=== PATIENT | female | born 1965 | race Caucasian/White ===

== ENCOUNTER 2019-03-22 11:10 | Day surgery (SDC) | payer BC ==
[2019-03-22] MEDS ORDERED: PROPOFOL 200 MG INJ (13:27)
[2019-03-22] MEDS ORDERED: PROPOFOL 60 ML (14:03)
== END 2019-03-22 16:18 | disposition home or self-care (01) ==
LOC: GIL 11:10
DX: Z12.11 Encounter for screening for malignant neoplasm of colon (principal); K64.9 Unspecified hemorrhoids; K20.9 Esophagitis, unspecified; I10 Essential (primary) hypertension; E11.9 Type 2 diabetes mellitus without complications; E78.5 Hyperlipidemia, unspecified; Z79.82 Long term (current) use of aspirin; Z79.84 Long term (current) use of oral hypoglycemic drugs
CPT/HCPCS: 43235; 82962